=== PATIENT | male | born 1940 | race Caucasian/White ===

== ENCOUNTER 2016-07-27 07:23 | Day surgery (SDC) | payer OTHER ==
[~2016-07-27 07:23] MED LIST: LIDOCAINE W/ SODIUM BICARB 0.5 ML SYR ONE; Lactated Ringers 1,000 ML PRIMARY IV ONE; ceFAZolin Inj 2gm (Premix) 50 ML IV ONE
[2016-07-27] MEDS ORDERED: fentaNYL Inj 100 MCG/2 ML VIAL ONE (08:10)
[2016-07-27] MEDS ORDERED: MIDAZOLAM 5 MG/1 ML ONE (08:10)
[2016-07-27] MEDS ORDERED: BUPivacaine Inj 0.5% PF (5mg/ml) 10ml vial ONE ×3 (08:52→11:56)
[2016-07-27] MEDS ORDERED: Lidocaine Inj 1% 20 ML ONE (08:52)
[2016-07-27] MEDS ORDERED: Lactated Ringers 1,000 ML PRIMARY IV ONE (09:38)
[2016-07-27] MEDS ORDERED: KETOROLAC 30 MG/1 ML VIAL ONE (12:10)
[2016-07-27] MEDS ORDERED: NORMAL SALINE 10 ML SYRINGE FLUSH IVP PRN (12:40)
[2016-07-27 13:06] VITALS: TEMP 97.9
--- NOTE | 2016-07-27 13:39 | DI ---
XR FOOT 2VW,07/27/2016 12:56 PM: Clinical History: Right foot hallux rigidus Previous Exam: None at this facility. Findings: AP and lateral views of the right foot are obtained, and demonstrate degenerative changes of the righ t first metatarsophalangeal joint. The surrounding soft tissues are unremarkable. There is some subchondral cyst formation at the first metatarsophalangeal joint. Alignment remains anatomic and no fractures are seen. 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
--- NOTE | 2016-07-27 14:16 | DI ---
XR FOOT COMPLETE MIN 3VW,07/27/2016 12:40 PM: Clinical History: Postoperative evaluation Previous Exam: None at this facility. Findings: 3 views of the left foot are obtained, and demonstrate degenerative changes involving the left first metatarsophalangeal joint. The overlying soft tissues demonstrate some slight irregularity. There is some enthesopathy at the insertion of the Achilles tendon. There is no soft tissue swelling. Impression: Degenerative changes of the left first metatarsophalangeal joint.
[2016-07-27 14:29] VITALS: RESP 16
--- NOTE | 2016-07-27 17:59 | GEN.OPNOTE ---
Operative Report Surgeon: Dr. Jason Nolan Anesthesia Type: Local, MAC Anesthesia Provider: Jaguar Enriquez CRNA Surgery Date: 07/27/16 Preoperative Diagnosis: Hallux rigidus on bilateral feet. Mallet toe second digit right foot. Postoperative Diagnosis: Same Procedure: Cheilectomy first MPJ bilateral feet. Long flexor tendon release sub -DIPJ second digit right foot. Estimated Blood Loss (mL): 5 Description of Procedure: Under mild sedation the patient was wheeled to the operating room placed on operating table in supine position a well-padded pneumatic ankle tourniquet was placed about the left ankle, and the right ankle. A first ray block on b/l feet and right second digit block on the right foot was then administered using a 1-1 mixture of 0.5% Marcaine and lidocaine. Both feet were then prepped scrubbed and drapped in the usual aseptic manner. An Esmarch bandage was then used to exsanguinate to left foot the ankle tourniquet was inflated to 250 mm of mercury. Attention was directed to the dorsal aspect of the first MPJ of the left foot where a linear longitudinal incision approximately 4-5 cm in length was made. The incision was then deepened using sharp and blunt dissection with care being taken to identify and retract all vital neural and vascular structures. The capsulotomy was then performed the capsular structures were reflected medially and laterally there was noted be a large dorsal bone spur on the first metatarsal head which was transected with an oscillating bone saw there is also noted to be a large loose bone fragment on the lateral aspect of the first MPJ joint. There was a small focal point of a defect of no cartilage on the proximal phalanx articulating surface it was drilled with a .62 K wire. There is also a small area of cartilage defect on the head of the metatarsal was drilled with a .62 K wire. Any rough edges were then smoothed with a rongeur. The joint was noted to a move smoothly after doing this. Redundant joint capsule and synovitis was transected with a 15 blade. Capsular structures were reapproximated and coapted with 2-0 and 3-0 Vicryl. 4-0 Vicryl was then used to reapproximate the subcutaneous and the dermal layer of the skin. The skin was reinforced with 3-0 Vicryl in horizontal mattress suture technique. The foot was then injected with a 0.5% Marcaine. Mastisol Steri-Strips were then applied the foot along with 4 x 4 gauze, kerlex and coban. The ankle tourniquet was deflated the patient had a proper hyperemic response. Attention was then directed to the right foot. An Esmarch bandage was then used to exsanguinate to right foot the ankle tourniquet was inflated to 250 mm of mercury. Attention was directed to the dorsal aspect of the first MPJ of the left foot where a linear longitudinal incision approximately 4-5 cm in length was made. The incision was then deepened using sharp and blunt dissection with care being taken to identify and retract all vital neural and vascular structures. The capsulotomy was then performed the capsular structures were reflected medially and laterally there was noted be a large dorsal bone spur on the first metatarsal head which was transected with an oscillating bone saw. Any rough edges were then smoothed a rongeur. The joint was noted to a move smoothly after doing this. Redundant joint capsule and synovitis was transected with a 15 blade. Capsular structures were reapproximated and coapted with 2-0 and 3-0 Vicryl. the subcutaneous and dermis layer of the skin was reapproximated with 4-0 Vicryl. The skin was reapproximated and coapted with 3-0 nylon in a horizontal mattress suture technique. The foot was then injected with 0.5% Marcaine. Attention was then directed to the plantar aspect of the second digit where a small incision was made on dissection was carried down to the level of the flexor tendon which was transected with a 15 blade. The skin was reapproximated and coapted with 4-0 nylon. Mastisol Steri-Strips were then applied the foot along with 4 x 4 gauze, kerlex and coban was applied to the right foot for dressing.The ankle tourniquet was deflated the patient had a proper hyperemic response. The patient tolerated the procedure well following a brief period of postoperative monitoring the patient will be discharged home with both written and oral postoperative instructions. Patient is to followup in my office in approximately one week.
== END 2016-07-27 13:41 | disposition home or self-care (01) ==
LOC: SDSC 07:23
PROVIDERS: ATTEND Podiatrist Foot & Ankle Surgery
DX: M20.22 Hallux rigidus, left foot (principal); M20.21 Hallux rigidus, right foot; M20.5X1 Other deformities of toe(s) (acquired), right foot
CPT/HCPCS: 28232; 28289; 73620; 73630; J0690; J1885; J2704; J3010; J2001; J2250; J3490; J7120